=== PATIENT | female | born 1940 | race Caucasian/White ===

== ENCOUNTER → 2017-02-09 | Outpatient (CLI) | payer BC ==
[2017-02-09 12:59] LABS: BLOOD UREA NITROGEN 23 mg/dl (7-18); BUN/CREATININE RATIO 35.8 (10-20); CARBON DIOXIDE 27 mmol/L (21-32); CHLORIDE 107 mmol/L (98-107); CREATININE 0.65 mg/dl (0.60-1.20); GLUCOSE 84 mg/dl (70-99); POTASSIUM 4.1 mmol/L (3.5-5.1); SODIUM 140 mmol/L (136-145)
[2017-02-09 13:52] LABS: CALCIUM 10.8 mg/dl (8.5-10.1)
== END | disposition home or self-care (01) ==
LOC: C.LABPVFM 09:33
PROVIDERS: ATTEND Family Medicine
DX: I10 Essential (primary) hypertension (principal)

== ENCOUNTER → 2017-03-28 | Outpatient (CLI) | payer BC ==
--- NOTE | 2017-03-28 14:55 | MAMMOGRAPHY REPORT ---
BILATERAL DIGITAL SCREENING MAMMOGRAM WITH CAD: 03/28/2017 CLINICAL HISTORY: Routine screening. Patient has no complaints. TECHNIQUE: Bilateral CC and MLO views were obtained. Current study was also evaluated with a Compute r Aided Detection (CAD) system. COMPARISON: Comparison is made to exams dated: 03/25/2016 mammogram, 03/24/2015 mammogram, 02/14/2014 ma mmogram, 10/17/2012 mammogram, 10/12/2011 mammogram, and 10/08/2010 mammogram - [facility] ter. BREAST COMPOSITION: There are scattered areas of fibroglandular density in both breasts. FINDINGS: There are benign-appearing micro-calcifications in the breasts. Stable nodular asymmetry i n the lateral right breast. No new suspicious mass, architectural distortion or cluster of microcalc ifications is seen. IMPRESSION: ACR BI-RADS CATEGORY 1: NEGATIVE There is no mammographic evidence of malignancy. A 1 year screening mammogram is recommended. The pa tient will receive written notification of the results. Approximately 10% of breast cancers are not detected with mammography. A negative mammographic report should not delay biopsy if a clinically suggestive mass is present. Rachel White M.D. ay/:03/28/2017 12:12:04 Lining Presser: Ekta KAUR(R)(M), [facility] letter sent: Normal 1/2 BI-RADS Code: ACR BI-RADS Category 1: Negative
== END | disposition home or self-care (01) ==
LOC: C.MAMM 09:20
PROVIDERS: ATTEND Family Medicine
DX: Z12.31 Encounter for screening mammogram for malignant neoplasm of breast (principal)

== ENCOUNTER → 2017-06-21 | Outpatient (CLI) | payer BC ==
[2017-06-21 10:24] LABS: BLOOD UREA NITROGEN 23 mg/dl (7-18); BUN/CREATININE RATIO 32.6 (10-20); CALCIUM 9.8 mg/dl (8.5-10.1); CARBON DIOXIDE 28 mmol/L (21-32); CHLORIDE 106 mmol/L (98-107); CHOLESTEROL 208 mg/dl (0-200); CREATININE 0.69 mg/dl (0.60-1.20); GLUCOSE 91 mg/dl (70-99); POTASSIUM 4.1 mmol/L (3.5-5.1); SODIUM 140 mmol/L (136-145); TRIGLYCERIDES 55 mg/dl (0-150); VERY LOW DENSITY LIPOPROT CALC 11 mg/dl
[2017-06-21 10:27] LABS: CHOLESTEROL/HDL RATIO 2.2; HDL CHOLESTEROL 95 mg/dl; LDL CHOLESTEROL CALCULATED 102 mg/dl
== END | disposition home or self-care (01) ==
LOC: C.LAB1850 09:12
PROVIDERS: ATTEND Family Medicine
DX: E83.52 Hypercalcemia (principal); E55.9 Vitamin D deficiency, unspecified; I10 Essential (primary) hypertension; E78.5 Hyperlipidemia, unspecified

== ENCOUNTER → 2018-05-01 | Outpatient (CLI) | payer BC ==
--- NOTE | 2018-05-02 07:32 | MAMMOGRAPHY REPORT ---
BILATERAL DIGITAL SCREENING MAMMOGRAM TOMOSYNTHESIS WITH CAD: 05/01/2018 CLINICAL HISTORY: Routine screening. Patient has no complaints. TECHNIQUE: The study was acquired using full field digital technology and interpreted from soft copy. Breast tomosynthesis in addition to standard 2D mammography was performed. Current study was also ev aluated with a Computer Aided Detection (CAD) system. COMPARISON: Comparison is made to exams dated: 03/28/2017 mammogram, 03/25/2016 mammogram, 03/24/2015 m ammogram, 02/14/2014 mammogram, 10/17/2012 mammogram, and 10/12/2011 mammogram - [facility] er. BREAST COMPOSITION: There are scattered areas of fibroglandular density in both breasts. FINDINGS: A nodular asymmetry in the lateral right breast on the CC view is unchanged dating back to at least 10/06/2009, therefore considered benign. There are stable scattered and loosely grouped pun ctate microcalcifications in the breasts. Minimal vascular calcification as well. No suspicious mass , architectural distortion or cluster of microcalcifications is seen. IMPRESSION: ACR BI-RADS CATEGORY 1: NEGATIVE There is no mammographic evidence of malignancy. A 1 year screening mammogram is recommended.( 019) The patient will receive written notification of the results. Some breast cancers are not detected with mammography. A negative mammographic report should not miguel y biopsy if a clinically suggestive mass is present. Rachel hWite M.D. ay/:05/01/2018 15:46:50 Table Games Supervisor: Christine Christina, RT(Franco)(M)(BD), [facility] letter sent: Normal 1/2 BI-RADS Code: ACR BI-RADS Category 1: Negative
== END | disposition home or self-care (01) ==
LOC: C.MAMM 14:04
PROVIDERS: ATTEND Family Medicine
DX: Z12.31 Encounter for screening mammogram for malignant neoplasm of breast (principal)

== ENCOUNTER → 2018-05-04 | Outpatient (CLI) | payer BC ==
--- NOTE | 2018-05-04 10:45 | DIAGNOSTIC IMAGING REPORT ---
L RIBS UNILATERAL WITH PA CHEST HISTORY: 78 years-old Female R07.81 Rib pain acute atypical chest pain with left-sided rib pain COMPARISON: Chest and rib radiographs 03/07/2018 TECHNIQUE: PA view the chest with 4 views of the left ribs FINDINGS: Cardiac silhouette is upper limits of normal in size. Calcification of the aorta. Linear subsegmental bibasilar opacities suggest atelectasis/scarring. There is no pneumothorax, pleural effusion or overt pulmonary edema. Small hiatal hernia. There are degenerative changes of the shoulders and spine. Previously described fracture of the anterior left sixth rib again noted which appears chronic in nature. No acute rib fracture identified. Moderate formed colonic stool volume. IMPRESSION: 1. No acute processes of the chest. 2. Chronic appearing fracture of the anterior left sixth rib. 3. No acute rib fracture identified. 4. Small hiatal hernia. The above report was generated using voice recognition software. It may contain grammatical, syntax or spelling errors. Electronically signed by: Abhilash Patel M.D. 05/04/2018 10:43 AM Dictated Date/Time: 05/04/2018 10:40 AM
== END | disposition home or self-care (01) ==
LOC: C.RADPV 10:18
PROVIDERS: ATTEND Family Medicine
DX: R07.81 Pleurodynia (principal); K44.9 Diaphragmatic hernia without obstruction or gangrene

== ENCOUNTER → 2018-05-24 | Outpatient (CLI) | payer BC ==
--- NOTE | 2018-05-24 15:06 | DIAGNOSTIC IMAGING REPORT ---
L LOWER EXT JOINT WITHOUT CLINICAL HISTORY: 78 years-old Female presenting with M25.552 Left hip pain. TECHNIQUE: Multisequence, multiplanar MR imaging of the left hip was performed without the use of intravenous contrast. IV contrast: None. COMPARISON: None. FINDINGS: Localizer images: Uterus surgically absent. Bone marrow: Bone marrow edema in the left sacral ala with irregular hypodense linear signal abnormality subjacent to the sacral leg joint concerning for incomplete fracture, likely insufficiency fracture. Osteophytosis at the bilateral sacroiliac joints. No other sites of bony edema. Articular cartilage: Articular cartilage of the left hip is preserved. Right hip grossly normal. Labrum: Acetabular labrum intact. No evidence of labral tear, chondrolabral separation or paralabral cyst. Bursae: No pathologic distention of the iliopsoas or trochanteric bursae. Joint effusion: No significant hip joint effusion. Sciatic nerve: Normal appearance of the sciatic nerve. Muscle: Normal muscle bulk and muscle signal intensity. Superficial soft tissue: No subcutaneous edema. IMPRESSION: 1. Left sacral insufficiency fracture. 2. No acute osseous injury or advanced degenerative changes of the left hip. The report will be called/faxed according to standard departmental protocol. Electronically signed by: Abhinav Rosas M.D. 05/24/2018 3:04 PM Dictated Date/Time: 05/24/2018 2:56 PM
== END | disposition home or self-care (01) ==
LOC: C.MRI 13:04
PROVIDERS: ATTEND Family Medicine
DX: M25.552 Pain in left hip (principal); M84.459A Pathological fracture, hip, unspecified, initial encounter for fracture